=== PATIENT | male | born 1995 | race Caucasian/White ===

== ENCOUNTER 2017-07-19 23:33 | Emergency (ER) | payer BC ==
[~2017-07-19] VITALS: Ht 172.7 cm; Wt 63.4 kg
[2017-07-19] MEDS ORDERED: SODIUM CHLORIDE 0.9% 1000ML 1,000 ML IV STA (23:40)
[2017-07-19] MEDS ORDERED: HYDROmorphone INJ 1 MG/ML SYR IV STA (23:42)
[2017-07-19] MEDS ORDERED: ONDANSETRON INJ 2 MG/ML 2 ML VIAL IV STA (23:42)
[2017-07-19 23:48] VITALS: Ht 172.7 cm; Wt 63.4 kg
[2017-07-20] MEDS ORDERED: MINO100C22 PO (00:08)
[2017-07-20 00:11] LABS: BASO % 0.3 %; BASO ABS # 0.02 K/uL (0-0.2); EOS % 1.6 %; EOS ABS # 0.11 K/uL (0-0.5); HEMATOCRIT 38.1 % (42-52); HEMOGLOBIN 13.2 g/dL (14.0-18.0); IG# 0.08 K/uL (0.00-0.02); LYMPH % 44.8 %; LYMPH ABS # 3.01 K/uL (1.2-3.4); MEAN CELL VOLUME 78.6 fL (80-100); MEAN CORPUSCULAR HEMOGLOBIN 27.2 pg (25-34); MEAN CORPUSCULAR HGB CONC 34.6 g/dl (32-36); MEAN PLATELET VOLUME 9.4 fL (7.4-10.4); MONO % 6.8 %; MONO ABS # 0.46 K/uL (0.11-0.59); NEUT % 45.3 %; NEUT ABS # 3.04 K/uL (1.4-6.5); PLATELET COUNT 183 K/uL (130-400); RED CELL DISTRIBUTION WIDTH CV 12.7 % (11.5-14.5); RED CELL DISTRIBUTION WIDTH SD 36.4 fL (36.4-46.3); WHITE BLOOD COUNT 6.72 K/uL (4.8-10.8)
[2017-07-20] MEDS ORDERED: HYDROmorphone INJ 1 MG/ML SYR IV STA (00:35)
[2017-07-20 00:44] LABS: ALBUMIN 4.2 gm/dl (3.4-5.0); ALKALINE PHOSPHATASE 64 U/L (45-117); ALT/SGPT 41 U/L (12-78); AST/SGOT 35 U/L (15-37); BLOOD UREA NITROGEN 17 mg/dl (7-18); CALCIUM 8.9 mg/dl (8.5-10.1); CARBON DIOXIDE 28 mmol/L (21-32); CREATININE 1.07 mg/dl (0.60-1.40); GLUCOSE 185 mg/dl (70-99); POTASSIUM 3.5 mmol/L (3.5-5.1); SODIUM 139 mmol/L (136-145); TOTAL PROTEIN 7.5 gm/dl (6.4-8.2)
[2017-07-20] MEDS ORDERED: KETAMINE HCL INJ 50 MG/ML 10 ML VIAL IV STA (00:55)
[2017-07-20] MEDS ORDERED: METOCLOPRAMIDE HCL INJ 5 MG/ML 2 ML VIAL IV STA (00:55)
[2017-07-20] MEDS ORDERED: PROPOFOL IV EMULSION 10 MG/ML 20 ML VIAL IV STA (00:55)
[2017-07-20 01:23] VITALS: BP 139/63; PULSE 92; O2SAT 100
--- NOTE | 2017-07-20 02:02 | EMERGENCY ROOM VISIT NOTE ---
Pre-Mod Sedation Assessment General Date of Moderate Sedation: Jul 20, 2017. Vital Signs: Vital Signs Past 12 Hours Date Time Temp Pulse Resp B/P (MAP) Pulse Ox O2 Delivery O2 Flow Rate FiO2 07/20/17 01:36 90 14 100 Nasal Cannula 4.0 07/20/17 01:35 92 12 100 Nasal Cannula 4.0 07/20/17 01:31 121/55 07/20/17 01:27 139/63 07/20/17 01:25 100 Nasal Cannula 4.0 07/20/17 01:25 91 14 100 Nasal Cannula 4.0 07/20/17 01:23 92 13 139/63 100 Nasal Cannula 4.0 07/20/17 01:16 136/63 07/20/17 01:15 84 28 100 07/20/17 01:14 146/67 07/20/17 01:00 90 13 127/75 100 07/20/17 00:45 79 15 118/80 07/20/17 00:15 76 12 120/78 97 07/20/17 00:14 73 16 114/72 100 Room Air 07/20/17 00:13 100 Room Air 07/20/17 00:07 66 07/19/17 23:48 37.0 58 18 117/72 Room Air Review Cardiovascular: regular rate, rhythm, no edema, no gallop, no JVD, no murmur, normal peripheral pulses Abdomen: normal bowel sounds, non tender, soft, no organomegaly, no pulsatile mass, normal rectal exam, occult blood negative Lungs: chest non-tender, lungs clear, normal breath sounds, no respiratory distress, no accessory muscle use Airway Class: I Pre-Sedation Airway Assessment Oral Cavity: WNL Short Thick Neck: No Hx of Sleep Apnea: Yes Smoking Status: Never Smoker Mallampati Classification: Class I (Sft palate,uvula,fauces,pillar) ASA Classification: Class I Procedure Planning Contraindications-for Mod Sed: None Yes Notes The planned sedation has been discussed with the patient and consent obtained. I have identified the patient, determined the appropriateness of sedation and have assessed the patient immediately prior to the procedure. All medicine(s) and interventions are by my order.
--- NOTE | 2017-07-20 02:03 | Post Sedation Assessment ---
Post Sedation Assessment General Date of Sedation Jul 20, 2017. Vital Signs: Vital Signs Past 12 Hours Date Time Temp Pulse Resp B/P (MAP) Pulse Ox O2 Delivery O2 Flow Rate FiO2 07/20/17 01:55 36.8 88 16 116/50 100 Nasal Cannula 4.0 07/20/17 01:51 108/48 07/20/17 01:50 92 16 100 Nasal Cannula 4.0 07/20/17 01:46 120/48 07/20/17 01:45 85 16 100 Nasal Cannula 4.0 07/20/17 01:41 113/52 07/20/17 01:40 86 14 100 07/20/17 01:36 90 14 100 Nasal Cannula 4.0 07/20/17 01:35 92 12 100 Nasal Cannula 4.0 07/20/17 01:31 121/55 07/20/17 01:27 139/63 07/20/17 01:25 100 Nasal Cannula 4.0 07/20/17 01:25 91 14 100 Nasal Cannula 4.0 07/20/17 01:23 92 13 139/63 100 Nasal Cannula 4.0 07/20/17 01:16 136/63 07/20/17 01:15 84 28 100 07/20/17 01:14 146/67 07/20/17 01:00 90 13 127/75 100 07/20/17 00:45 79 15 118/80 07/20/17 00:15 76 12 120/78 97 07/20/17 00:14 73 16 114/72 100 Room Air 07/20/17 00:13 100 Room Air 07/20/17 00:07 66 07/19/17 23:48 37.0 58 18 117/72 Room Air Post Procedure Recovery Score Activity: (0) Moves 0 extremities * Respiration: (2) Deep breath/cough Circulation: (2) +/-20% PreAnes Value Consciousness: (1) Arouseable (by name) Oxygen Saturation: (1) O2 needed for >90% Post Anesthesia Score: 6 Discharge Sedation Level of Care: Phase I Post Sedation Plan On clinical assessment, the patient appears to have tolerated the sedation without complications. Patient is recovering as anticipated. Patient will continue to be monitored by nursing and may be discharged when sedation discharge criteria are met per below protocol. Upon Completions of procedure and additional 15 minutes continue every 5 minute vital signs and the P.A.R. score; then discharge to a Phase I or Fast Track to Phase II per the following guidelines: * Discharge Patient to appropriate Phase II area if PAR is 8 or greater or return to pre- procedure baseline. The post - procedure orders will be as directed. * If PAR score is less than 8 or not return to pre-procedure baseline then patient will follow Phase I monitoring till PAR is reached for Phase II. The Phase I may be done in procedure room or may call to secure a Phase I area. * If naloxone or flumazenil are used for reversal, hold in Phase I for an additional 60 -120 minutes before discharge to Phase II. Please call the Sedation Physician to re-evaluate and complete post-note for discharge to Phase II area. Do NOT discharge from procedure sedation or Phase 1 until post- sedation evaluation note is complete by procedure /sedation MD Sedation Discharge Instructions to be given to the patient at discharge to home.
[2017-07-20 02:05] VITALS: BP 113/56; PULSE 96; TEMP 36.8; O2SAT 100
[2017-07-20 02:25] VITALS: BP 127/52; PULSE 90; TEMP 37; O2SAT 96
--- NOTE | 2017-07-20 02:37 | Medical Consult ---
Consultation Note Date of Service Jul 20, 2017. Consultation Note CHIEF COMPLAINT: Bilateral wrist injuries. HISTORY OF PRESENT ILLNESS: Matt is a pleasant 21-year-old male, right-hand- dominant, [employer] science student, who fell backwards over a one story balcony last evening injuring both wrists. He was worked up by the emergency room and only found to have the fractures in the risks and deformities. I was consult for further evaluation and treatment. He denies any alcohol use or other injuries . Past medical history: ACNE. Past surgical history: Denies. MEDICATIONS: Minocycline (Minocin), 100 MG PO DAILY. ALLERGIES: No known drug allergies. FAMILY HISTORY: Noncontributory. SOCIAL HISTORY: He is a [employer] student from [place]. He lives with his grandmother while here at school. []. REVIEW OF SYSTEMS: A 10-point review of systems is noted in the [facility] medical [facility]. he was in his usual state of health prior to the fall. PHYSICAL EXAM: Patient is in no acute distress breathing easily at 16 breaths per minute. The patient resting comfortably in the [facility]. They have an appropriate mood and affect. They weigh 63.4 kg and areB1 172.7 cm tall. BILATERAL UPPER EXTREMITIES: 2+ DP pulses. Sensation to light touch is intact distally. Motor to his median, radial, ulnar, AIN, PIN are intact. He has an obvious deformity about the right wrist. The left wrist has less of the deformity and significant dorsal swelling in the area of the anatomic snuffbox. He does have tenderness palpation in the anatomic snuffbox on the left. the skin is otherwise intact. C-spine: No tenderness to palpation. No noted step-offs. Full range of motion. Abdomen: Soft and nontender. RADIOGRAPHS: Views of the right wrist show a 55 dorsal angulated distal radius fracture. Views of the left wrist show loss of volar tilt and approximately 10- 15 of dorsal angulation of the distal radius and an intra-articular fracture of the radial facet of the ulna. There is a distracted waist fracture of the scaphoid. Concern for scapholunate widening. IMPRESSION: 1. Right distal radius fracture, displaced, initial visit. 2. Left distal radius and ulna fractures, displaced, initial visit, Concern for scapholunate ligament injury. 3. Left scaphoid waist fracture, displaced, initial visit. PLAN: After a lengthy discussion with the patient regarding my above clinical findings, as well as reviewing his imaging, it was recommended that he undergo closed reduction of both wrists. He will need to be referred to hand team for further evaluation and treatment of these fractures, which should be done within the next week. They were given the name of Dr. Terence Hopson, down in [place], which may be closer to home and he sees patients here in [place] as well. Hhe risks of the closed reduction were discussed and included but not limited to: Continued pain, loss of reduction, need for future surgery. He will keep the splints clean and dry. He will be given cast care instructions and compartment syndrome morning signs. He agreed to proceed with the closed reduction. He will ice and elevate. He will be given slings. The patient understood all my instructions and explanation; all their questions were satisfactorily addressed. PROCEDURE: After obtaining consent and performing a timeout identifying both wrists for her closed reductions, the emergency staff performed conscious sedation. Once this had taken appropriate affect the right wrist underwent closed reduction in the standard fashion followed by the left in a similar manner. Fluoroscopic images from the mini C-arm were obtained to ensure adequate reduction prior to placing in sugar tong splints that were well-padded in 3-point molded. The left wrist was also placed with a thumb spica to protect the scaphoid fracture. Portable films were obtained at that point that showed again adequate reductions of both the right and left fractures. When he was more awake, he remained neurovascularly intact and his pain was significantly reduced. He will follow all of my above instructions.
--- NOTE | 2017-07-20 02:41 | EMERGENCY ROOM VISIT NOTE ---
History First contact with patient: 23:40 Chief Complaint: FALL Stated Complaint: B/L ARM PAIN History of Present Illness The patient is a 21 year old male who presents to the Emergency Room with complaints of falling off a balcony approximately 1 hour prior to arrival. The patient was "horsing around when he fell over backwards and landed on his wrists. The patient is unsure if he hit his head however he remembers everything from the fall. He denies drinking any alcohol tonight. He last had food at 8 PM. He denies any other past medical history. Patient reports he was on a balcony one-story up when he fell over the side. Review of Systems See HPI for pertinent positives & negatives. A total of 10 systems reviewed and were otherwise negative. Past Medical/Surgical History Acne Social History Smoking Status: Never Smoker Smokeless Tobacco Use: No Drug Use: none Marital Status: single Housing Status: lives with roommate Occupation Status: [employer] student Current/Historical Medications Scheduled Docusate Sodium (Colace), 1 CAP PO BID Minocycline (Minocin), 100 MG PO DAILY Senna (Senokot), 1 TAB PO HS Scheduled PRN Oxycodone Ir (Roxicodone Ir), 1-2 TAB PO Q4H PRN for Severe Pain Physical Exam Vital Signs Date Time Temp Pulse Resp B/P (MAP) Pulse Ox O2 Delivery O2 Flow Rate FiO2 07/20/17 07:50 102 16 137/63 99 07/20/17 07:16 88 07/20/17 07:02 91 12 129/67 99 Room Air 07/20/17 05:35 80 13 99 07/20/17 05:05 82 12 98 07/20/17 05:01 112/61 07/20/17 04:35 90 18 96 07/20/17 04:05 94 07/20/17 04:05 91 19 96 07/20/17 04:00 116/51 07/20/17 03:47 116/52 07/20/17 03:31 96 17 96 07/20/17 03:26 94 17 96 07/20/17 02:56 96 18 96 07/20/17 02:38 117/57 07/20/17 02:31 115/51 07/20/17 02:26 90 19 127/52 96 07/20/17 02:25 37.0 90 16 127/52 96 Room Air 07/20/17 02:21 37.0 111/48 07/20/17 02:20 91 16 97 Room Air 07/20/17 02:15 88 16 120/48 98 Room Air 07/20/17 02:10 87 16 106/54 98 Room Air 07/20/17 02:06 113/56 07/20/17 02:05 84 16 100 07/20/17 02:05 36.8 96 16 113/56 100 Nasal Cannula 4.0 07/20/17 02:01 122/49 07/20/17 02:00 91 16 100 07/20/17 01:55 36.8 88 16 116/50 100 Nasal Cannula 4.0 07/20/17 01:51 108/48 07/20/17 01:50 92 16 100 Nasal Cannula 4.0 07/20/17 01:46 120/48 07/20/17 01:45 85 16 100 Nasal Cannula 4.0 07/20/17 01:41 113/52 07/20/17 01:40 86 14 100 07/20/17 01:36 90 14 100 Nasal Cannula 4.0 07/20/17 01:35 92 12 100 Nasal Cannula 4.0 07/20/17 01:31 121/55 07/20/17 01:27 139/63 07/20/17 01:25 100 Nasal Cannula 4.0 07/20/17 01:25 91 14 100 Nasal Cannula 4.0 07/20/17 01:23 92 13 139/63 100 Nasal Cannula 4.0 07/20/17 01:16 136/63 07/20/17 01:15 84 28 100 07/20/17 01:14 146/67 07/20/17 01:00 90 13 127/75 100 07/20/17 00:45 79 15 118/80 07/20/17 00:15 76 12 120/78 97 07/20/17 00:14 73 16 114/72 100 Room Air 07/20/17 00:13 100 Room Air 07/20/17 00:07 66 07/19/17 23:48 37.0 58 18 117/72 Room Air Physical Exam GENERAL: Awake, alert, well-appearing, in obvious pain HENT: Normocephalic, atraumatic. Oropharynx unremarkable. EYES: Normal conjunctiva. Sclera non-icteric. NECK: Supple. No nuchal rigidity. FROM. No JVD.No midline tenderness RESPIRATORY: Clear to auscultation. CARDIAC: Regular rate, normal rhythm. Extremities warm and well perfused. Pulses equal. ABDOMEN: Soft, non-distended. No tenderness to palpation. No rebound or guarding. No masses. RECTAL: Deferred. MUSCULOSKELETAL: Chestexamination reveals no tenderness. The back is symmetrical on inspection without obvious abnormality. There is no CVA tenderness to palpation. No joint edema. Patient has bilateral deformities to his wrists. He is neurovascularly intact and has good feeling in his fingers. LOWER EXTREMITIES: Calves are equal size bilaterally and non-tender. No edema. No discoloration. NEURO: Normal sensorium. No sensory or motor deficits noted. SKIN: No rash or jaundice noted. Medical Decision & Procedures ER Provider Diagnostic Interpretation: One view of the pelvis was interpreted by me shows no evidence of acute fracure , dislocation, or subluxation a 1 view of the chest was interpreted by me shows no evidence of pneumothorax congestion pneumonia, shoulders also appear to be intact with no dislocation A 2 view of the right wrist was interpreted by me shows a distal radius fracture on the right with volar dislocation and angulation of approximately 55 .there is no evidence of dislocation or subluxation. A 2 view of the left wrist was interpreted interpreted by me shows a distal radius fracture there is no evidence of dislocation or subluxation. A 2 view of the left forearm shows a distal radius fracture and no evidence of dislocation or subluxation A 2 view of the right forearm shows a distal radius fracture no evidence of dislocation or subluxation. CT of the head shows no evidence of intracranial hemorrhage, fracture CT of the C-spine shows no evidence of acute fracture dislocation or subluxation. Laboratory Results 07/20/17 00:03 Red Blood Count 4.85, Mean Corpuscular Volume 78.6, Mean Corpuscular Hemoglobin 27.2, Mean Corpuscular Hemoglobin Concent 34.6, Mean Platelet Volume 9.4, Neutrophils (%) (Auto) 45.3, Lymphocytes (%) (Auto) 44.8, Monocytes (%) (Auto) 6.8, Eosinophils (%) (Auto) 1.6, Basophils (%) (Auto) 0.3, Neutrophils # (Auto) 3.04, Lymphocytes # (Auto) 3.01, Monocytes # (Auto) 0.46, Eosinophils # (Auto) 0.11, Basophils # (Auto) 0.02 07/20/17 00:03 Test 07/20/17 00:01 07/20/17 00:03 07/20/17 00:36 Bedside Glucose 208 mg/dl (70-99) White Blood Count 6.72 K/uL (4.8-10.8) Red Blood Count 4.85 M/uL (4.7-6.1) Hemoglobin 13.2 g/dL (14.0-18.0) Hematocrit 38.1 % (42-52) Mean Corpuscular Volume 78.6 fL (80-100) Mean Corpuscular Hemoglobin 27.2 pg (25-34) Mean Corpuscular Hemoglobin Concent 34.6 g/dl (32-36) Platelet Count 183 K/uL (130-400) Mean Platelet Volume 9.4 fL (7.4-10.4) Neutrophils (%) (Auto) 45.3 % Lymphocytes (%) (Auto) 44.8 % Monocytes (%) (Auto) 6.8 % Eosinophils (%) (Auto) 1.6 % Basophils (%) (Auto) 0.3 % Neutrophils # (Auto) 3.04 K/uL (1.4-6.5) Lymphocytes # (Auto) 3.01 K/uL (1.2-3.4) Monocytes # (Auto) 0.46 K/uL (0.11-0.59) Eosinophils # (Auto) 0.11 K/uL (0-0.5) Basophils # (Auto) 0.02 K/uL (0-0.2) RDW Standard Deviation 36.4 fL (36.4-46.3) RDW Coefficient of Variation 12.7 % (11.5-14.5) Immature Granulocyte % (Auto) 1.2 % Immature Granulocyte # (Auto) 0.08 K/uL (0.00-0.02) Anion Gap 6.0 mmol/L (3-11) Est Creatinine Clear Calc Drug Dose 97.9 ml/min Estimated GFR () 114.4 Estimated GFR (Non- 98.7 BUN/Creatinine Ratio 15.6 (10-20) Calcium Level 8.9 mg/dl (8.5-10.1) Total Bilirubin 0.2 mg/dl (0.2-1) Direct Bilirubin < 0.1 mg/dl (0-0.2) Aspartate Amino Transf (AST/SGOT) 35 U/L (15-37) Alanine Aminotransferase (ALT/SGPT) 41 U/L (12-78) Alkaline Phosphatase 64 U/L (45-117) Total Protein 7.5 gm/dl (6.4-8.2) Albumin 4.2 gm/dl (3.4-5.0) Chemistry Specimen Hemolysis Ethyl Alcohol mg/dL < 3.0 mg/dl (0-3) Medications Administered Medications (Trade) Dose Ordered Sig/Hilda Route Start Time Stop Time Status Last Admin Dose Admin Sodium Chloride 1,000 ml @ 999 mls/hr Q1H1M STAT IV 07/19/17 23:40 07/20/17 00:40 DC 07/20/17 00:06 999 MLS/HR Hydromorphone HCl (Dilaudid Inj) 1 mg NOW STAT IV 07/19/17 23:42 07/19/17 23:44 DC 07/20/17 00:06 1 MG Ondansetron HCl (Zofran Inj) 4 mg NOW STAT IV 07/19/17 23:42 07/19/17 23:44 DC 07/20/17 00:05 4 MG Hydromorphone HCl (Dilaudid Inj) 1 mg NOW STAT IV 07/20/17 00:35 07/20/17 00:36 DC 07/20/17 00:49 1 MG Metoclopramide HCl (Reglan Inj) 10 mg NOW STAT IV 07/20/17 00:55 07/20/17 00:56 DC 07/20/17 01:16 10 MG Ketamine HCl (Ketalar Steri-Vial Inj) 30 mg NOW STAT IV 07/20/17 00:55 07/20/17 00:56 DC 07/20/17 01:16 30 MG Procedure Procedural Sedation Indication B/l wrist dislocation. Total time: 30 minutes. Written consent was obtained after the risks and benefits were explained to the patient and his mother (by telephone), including, but not limited to aspiration , allergic reaction, breathing difficulties, cardiac complications, vomiting, pain, event recall, bleeding, and/or infection. Pre-sedation examination and paperwork completed. The patient was on 100% oxygen via NRB prior to the procedure. Continous end tidal CO2 monitoring, pulse oximetry, and cardiac monitoring were utilized. Suction, airway equipment, medications, respiratory equipment, and appropriate personnel were prepared prior to the initiation of the procedure. A time out was taken. Sedation was achieved utilizing 30 mg of ketamine and 30 mg Propofol x3. After I observed the patient had reached the appropriate level of sedation the main procedure was performed without complication. Sedation was discontinued and the monitoring continued. The patient recovered quickly from the effects of the medication without complication or adverse event. Medical Decision This is a 21-year-old male who presents the emergency department after a fall off a balcony. Due to the trauma nature of the presentation of the patient an IV was immediately established, the patient was sent for a CAT scan of the head as well as the C-spine. A fast exam was performed in the patient's abdomen this did not show any evidence of acute fluid in the belly. X-rays were obtained of the patient's wrist chest and pelvis. They were interpreted by me as above. The patient was given 1 mg of Dilaudid 2 in the emergency department along with Zofran and Reglan and normal saline bolus. I did discuss the case with Dr. Templeton who is the on-call orthopedic surgeon who kindly agreed to come in and see the patient. Reduction was performed by Dr. Templeton. The patient was sedated as above. The patient's last oral intake was at 8 PM and as this is an emergent procedure I feel we are clear to go. The patient will be observed in the emergency department and overnight and he will be discharged in the morning. Risks of compartment syndrome were reviewed with both patient and his mother. The patient was also given ice packs to place bilaterally on his wrists and I recommended that the patient placed ice for the next 24 hours. I also strongly recommended to both patient and his mother that they follow- up with a hand surgeon this week. Contact information were given for hand surgery in [place] as well as Dr. Macias's office. [place] Drug Monitoring [place] Search Results: no issues identified Head Trauma GCS Score: 15 Medication Reconcilliation Current Medication List: was personally reviewed by me Blood Pressure Screening Patient's blood pressure: Normal blood pressure Impression Primary Impression: Fall Additional Impression: Wrist fracture, bilateral Departure Information Dispostion Home / Self-Care Prescriptions Docusate Sodium (COLACE) 100 Mg Cap 1 CAP PO BID for 30 Days, #60 CAP Prov: Baldomero Kingsley MD 07/20/17 Senna (Senokot) 8.6 Mg Tab 1 TAB PO HS for 30 Days, #30 TAB Prov: Baldomero Kingsley MD 07/20/17 Oxycodone Ir (Roxicodone Ir) 5 Mg Tab 1-2 TAB PO Q4H Y for Severe Pain, #30 TAB Prov: Baldomero Kingsley MD 07/20/17 [facility] (PCP) Patient Instructions [facility] Problem Qualifiers Primary Impression: Fall Encounter type: initial encounter Qualified Codes: W19.XXXA - Unspecified fall, initial encounter Additional Impression: Wrist fracture, bilateral Encounter type: initial encounter Fracture type: closed Qualified Codes: S62.101A - Fracture of unspecified carpal bone, right wrist, initial encounter for closed fracture; S62.102A - Fracture of unspecified carpal bone, left wrist , initial encounter for closed fracture
[2017-07-20] MEDS ORDERED: SENN-61 PO (02:46)
[2017-07-20] MEDS ORDERED: DOCU-94 PO (02:46)
[2017-07-20] MEDS ORDERED: OXYC1TAB3 PO (02:46)
--- NOTE | 2017-07-20 06:40 | DIAGNOSTIC IMAGING REPORT ---
CT HEAD WITHOUT CONTRAST (CT) CLINICAL HISTORY: Head pain status post trauma COMPARISON STUDY: No previous studies for comparison. TECHNIQUE: Axial CT of the brain is performed from the vertex to the skull base. IV contrast was not administered for this examination. A dose lowering technique was utilized adhering to the principles of ALARA. CT DOSE: 729.78 mGycm FINDINGS: No intra or extra-axial mass lesions are visualized. There is no CT evidence of acute cortical infarction. There is no evidence of midline shift. There is no acute hemorrhage. No calvarial fractures are visualized. There is no evidence of pathologic ventricular dilatation. There is no evidence of acute sinusitis IMPRESSION: Normal noncontrast head CT. Electronically signed by: Tashi Schafer M.D. 07/20/2017 6:39 AM Dictated Date/Time: 07/20/2017 6:38 AM
--- NOTE | 2017-07-20 07:09 | DIAGNOSTIC IMAGING REPORT ---
CT SCAN OF THE CERVICAL SPINE CLINICAL HISTORY: Fall. Neck pain. COMPARISON STUDY: No priors. TECHNIQUE: CT scan of the cervical spine is performed from the skull base to the upper thoracic spine. Images are reviewed in the axial, sagittal, and coronal planes. IV contrast was not administered for this examination. A dose lowering technique was utilized adhering to the principles of ALARA. CT DOSE: 419.02 mGycm FINDINGS: Skeletal structures: The skeletal structures are well mineralized. There is no evidence of fracture or subluxation involving the cervical spine. Vertebral body height and alignment are maintained. There is straightening of the cervical lordosis. The odontoid process and lateral masses are intact. The atlantoaxial articulation is preserved. The spinous processes appear intact. Intervertebral discs: The disc spaces are well maintained. Central canal: Widely patent. Soft tissues: The prevertebral and paraspinous soft tissues are within normal limits. Calvarium: The visualized calvarium at the skull base appears intact. Brain parenchyma: Partially visualized brain parenchyma the skull base is within normal limits. Sinuses and mastoids: The visualized paranasal sinuses are clear. The mastoid air cells are well pneumatized. Lung apices: Clear as visualized. IMPRESSION: There is no evidence of fracture or subluxation involving the cervical spine. Electronically signed by: Duc Zavala M.D. 07/20/2017 7:08 AM Dictated Date/Time: 07/20/2017 7:06 AM
--- NOTE | 2017-07-20 07:25 | DIAGNOSTIC IMAGING REPORT ---
INTRAOPERATIVE RIGHT WRIST 2 VIEWS CLINICAL HISTORY: Right wrist fracture intraoperative closed reduction COMPARISON STUDY: 07/20/2017 FINDINGS: 2 intraoperative fluoroscopic spot images reveal improved alignment of the previous identified Colles' fracture. IMPRESSION: Significantly improved alignment of the distal radial fracture status post closed reduction. Electronically signed by: Tashi Schafer M.D. 07/20/2017 7:24 AM Dictated Date/Time: 07/20/2017 7:23 AM
--- NOTE | 2017-07-20 07:26 | DIAGNOSTIC IMAGING REPORT ---
PELVIS 1 OR 2 VIEW ROUTINE CLINICAL HISTORY: Pelvic pain status post trauma COMPARISON STUDY: No previous studies for comparison. FINDINGS: No acute fractures are visualized. There are bone islands within the left ischio and left femoral neck. There are no dislocations. IMPRESSION: No fractures or dislocations identified. Electronically signed by: Tashi Schafer M.D. 07/20/2017 7:25 AM Dictated Date/Time: 07/20/2017 7:24 AM
--- NOTE | 2017-07-20 07:29 | DIAGNOSTIC IMAGING REPORT ---
CHEST ONE VIEW PORTABLE CLINICAL HISTORY: Chest pain status post trauma COMPARISON STUDY: No previous studies for comparison. FINDINGS: The cardiac and mediastinal contours are normal. There is no evidence of focal pulmonary consolidation. There is no evidence of failure. No pleural effusions are visualized.[ No pneumothorax is visualized. IMPRESSION: No active disease in the chest. Electronically signed by: Tashi Schafer M.D. 07/20/2017 7:27 AM Dictated Date/Time: 07/20/2017 7:27 AM
--- NOTE | 2017-07-20 07:32 | DIAGNOSTIC IMAGING REPORT ---
R WRIST 2 VIEW CLINICAL HISTORY: Fracture status post reduction COMPARISON: 07/19/2017 DISCUSSION: There is a comminuted intra-articular distal radial fracture. There is associated ulnar styloid fracture. There is been interval reduction with application of a fiberglass cast. The radial articular surface is in the neutral position. IMPRESSION: Interval reduction of the previously identified Colles' fracture with application of a fiberglass cast. Electronically signed by: Tashi Schafer M.D. 07/20/2017 7:31 AM Dictated Date/Time: 07/20/2017 7:30 AM
--- NOTE | 2017-07-20 07:34 | DIAGNOSTIC IMAGING REPORT ---
L WRIST 2 VIEW CLINICAL HISTORY: Fracture status post reduction COMPARISON: 07/19/2017 DISCUSSION: There is been interval reduction of the previously described fracture with application of a fiberglass cast. The radial articular surface appears in neutral position. There is ulnar minus variance. The distal ulnar fracture remains similar in appearance. IMPRESSION: Interval reduction of the previous described fracture with application of a fiberglass cast. There is ulnar minus variance. Electronically signed by: Tashi Schafer M.D. 07/20/2017 7:32 AM Dictated Date/Time: 07/20/2017 7:31 AM
--- NOTE | 2017-07-20 07:35 | DIAGNOSTIC IMAGING REPORT ---
INTRAOPERATIVE LEFT WRIST 2 VIEWS CLINICAL HISTORY: Closed reduction. Fracture. COMPARISON STUDY: 07/11/2017 FINDINGS: 9 seconds of fluoroscopic time was utilized. 2 fluoroscopic spot images are provided for interpretation. There is been interval reduction of the previous described fracture. Also evident is a navicular fracture. There is ulnar minus variance. IMPRESSION: 1. Interval reduction of the previous identified distal radial fracture. The radial articular surface is in the neutral position. There is ulnar minus variance. There is a navicular fracture. Electronically signed by: Tashi Schafer M.D. 07/20/2017 7:34 AM Dictated Date/Time: 07/20/2017 7:33 AM
--- NOTE | 2017-07-20 07:37 | DIAGNOSTIC IMAGING REPORT ---
L WRIST MIN 3 VIEWS ROUTINE CLINICAL HISTORY: Pain status post trauma COMPARISON: None. DISCUSSION: There is a fracture through the midpole of the navicular. There is a mildly comminuted fracture of the distal ulna. There is ulnar minus variance. There is an acute fracture of the distal radius. There is 21 degrees of vertex dorsal angulation at the fracture site. There is dorsal soft tissue swelling. IMPRESSION: 1. Colles' type fracture with 21 degrees of vertex dorsal angulation of the distal radial articular surface 2. Distal ulnar fracture. Ulnar minus variance. 3. Acute fracture through the midpole of the navicular Electronically signed by: Tashi Schafer M.D. 07/20/2017 7:36 AM Dictated Date/Time: 07/20/2017 7:34 AM
--- NOTE | 2017-07-20 07:38 | DIAGNOSTIC IMAGING REPORT ---
WRIST 2 VIEW CLINICAL HISTORY: Right wrist pain status post trauma COMPARISON: None. DISCUSSION: There is acute fracture through the midpole of the navicular. There is a mildly comminuted distal radial fracture. There is 47 degrees of vertex dorsal angulation at the fracture site. There is a suspected associated ulnar styloid fracture. There is dorsal soft tissue swelling. IMPRESSION: 1. Colles' type fracture distal radius with 47 degrees of vertex dorsal angulation of the articular surface 2. Acute fracture through the midpole navicular 3. Suspected associated ulnar styloid fracture Electronically signed by: Tashi Schafer M.D. 07/20/2017 7:37 AM Dictated Date/Time: 07/20/2017 7:36 AM
--- NOTE | 2017-07-20 07:43 | DIAGNOSTIC IMAGING REPORT ---
L FOREARM 2 VIEWS ROUTINE CLINICAL HISTORY: Left forearm pain status post trauma COMPARISON: None. DISCUSSION: There is acute fracture through the midpole the navicular. There is acute fracture of the distal ulna. There is acute fracture of the distal radius with dorsal angulation of the radial articular surface. There is no subluxation at the level the elbow. No proximal radial or ulnar fractures are visualized IMPRESSION: 1. Acute transverse fracture through the midpole the navicular 2. Acute distal ulnar fracture 3. Acute fracture of the distal radius with dorsal angulation of the radial articular surface Electronically signed by: Tashi Schafer M.D. 07/20/2017 7:42 AM Dictated Date/Time: 07/20/2017 7:41 AM
--- NOTE | 2017-07-20 07:44 | DIAGNOSTIC IMAGING REPORT ---
R FOREARM 2 VIEWS ROUTINE CLINICAL HISTORY: Right forearm pain status post trauma COMPARISON: None. DISCUSSION: There is acute comminuted intra-articular fracture of the distal radius. There is marked dorsal angulation of the radial articular surface. There is associated ulnar styloid fracture. There is a transverse fracture through the midpole of the navicular. There is no dislocation at the level of the elbow. No proximal radial or ulnar fractures are visualized. IMPRESSION: 1. Acute fracture through the midpole the ventricular 2. Acute ulnar styloid fracture 3. Comminuted intra-articular fracture of the distal radius with dorsal angulation of the radial articular surface Electronically signed by: Tashi Schafer M.D. 07/20/2017 7:43 AM Dictated Date/Time: 07/20/2017 7:42 AM
[2017-07-20 07:50] VITALS: BP 137/63; PULSE 102; O2SAT 99
== END 2017-07-20 08:20 | disposition home or self-care (01) ==
LOC: C.EDB 23:34 → C.EDA 07-20 08:20
DX: S52.501A Unspecified fracture of the lower end of right radius, initial encounter for closed fracture (principal); S62.002A Unspecified fracture of navicular [scaphoid] bone of left wrist, initial encounter for closed fracture; S52.502A Unspecified fracture of the lower end of left radius, initial encounter for closed fracture; S52.602A Unspecified fracture of lower end of left ulna, initial encounter for closed fracture; W13.0XXA Fall from, out of or through balcony, initial encounter; L70.9 Acne, unspecified